=== PATIENT | female | born 1965 | race Caucasian/White ===

== ENCOUNTER 2025-01-18 08:29 | Emergency (ER) | payer SELFPAY ==
[2025-01-18] MEDS: Lidocaine 1% with EPINEPHrine 1:100,000 20 ML MDV INJECT ONE (08:45)
[2025-01-18] MEDS: Lidocaine 1% with EPINEPHrine 1:100,000 20 ML MDV ONE (08:52)
[2025-01-18] MEDS: Bacitracin/Neomycin/Polymyxin B Oint 0.9 GM U/D Packet TOP ONE (08:53)
[2025-01-18] MEDS: Ondansetron 4 MG Tab.DIS PO ONE (09:00)
[2025-01-18] MEDS: Ondansetron 4 MG Tab.DIS ONE (09:12)
== END 2025-01-18 09:01 | disposition home or self-care (01) ==
LOC: KA.ED 08:29
DX: S01.01XA Laceration without foreign body of scalp, initial encounter (principal); T75.3XXA Motion sickness, initial encounter; Z88.0 Allergy status to penicillin; Z88.2 Allergy status to sulfonamides; W01.198A Fall on same level from slipping, tripping and stumbling with subsequent striking against other object, initial encounter; Y92.002 Bathroom of unspecified non-institutional (private) residence as the place of occurrence of the external cause
CPT/HCPCS: 12031; 99282; A9270-GY; J2004